=== PATIENT | male | born 2000 | race African-American/Black ===

== ENCOUNTER 2022-11-25 18:00 | Emergency (ER) | payer BC ==
[2022-11-25 18:12] VITALS: PULSE 74; RESP 16; TEMP 98; BMI 25.9
[2022-11-25] MEDS ORDERED: predniSONE 20 MG TABLET (UD) PO ONE (18:17)
[2022-11-25] MEDS ORDERED: ALBUTEROL SO4 2.5/IPRATROPIUM 0.5 INH SOL 3 ML VIAL.NEB. NEB ONE (18:21)
[2022-11-25] MEDS ORDERED: predniSONE 20 MG TABLET (UD) ONE (18:21)
[2022-11-25] MEDS: ALBUTEROL SO4 2.5/IPRATROPIUM 0.5 INH SOL 3 ML VIAL.NEB. NEB SCH ×4 (18:25→19:08)
[2022-11-25 19:50] VITALS: BP 151/86
== END 2022-11-25 20:12 | disposition home or self-care (01) ==
LOC: FER 18:00
PROC: 3E0F7GC Introduction of Other Therapeutic Substance into Respiratory Tract, Via Natural or Artificial Opening (ICD-10-PCS; principal; 2022-11-25)
DX: J45.901 Unspecified asthma with (acute) exacerbation (principal); R07.89 Other chest pain; R06.02 Shortness of breath
CPT/HCPCS: 71046-TC-FY; 99283-25